=== PATIENT | male | born 1995 | race Caucasian/White ===

== ENCOUNTER 2021-11-13 09:15 | Emergency (ER) | payer SELFPAY ==
[~2021-11-13] VITALS: Ht 182.9 cm; Wt 67.1 kg
[2021-11-13 09:28] VITALS: BP 123/63
--- NOTE | 2021-11-13 09:31 | NUR ---
PT AMBULATED TO BED 05.
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
--- NOTE | 2021-11-13 10:11 | NUR ---
Patient discharged with v/s stable. Written and verbal after care instructions ABOUT SHOULDER SPRAIN given and explained. Patient verbalized understanding. Ambulatory with steady gait. All questions addressed prior to discharge. Advised to follow up with PMD.
== END 2021-11-13 10:11 | disposition home or self-care (01) ==
LOC: MED 09:15
DX: S46.812A Strain of other muscles, fascia and tendons at shoulder and upper arm level, left arm, initial encounter (principal); X58.XXXA Exposure to other specified factors, initial encounter; Y93.89 Activity, other specified; Y92.89 Other specified places as the place of occurrence of the external cause; Y99.8 Other external cause status
CPT/HCPCS: 71045; 73030; 99284